=== PATIENT | male | born 1990 | race Caucasian/White ===

== ENCOUNTER 2016-07-12 06:56 | Emergency (ER) | payer BC ==
[2016-07-12] MEDS ORDERED: NORCO 5/325 MG PO ONE (07:21)
[2016-07-12] MEDS ORDERED: NORCO 5/325 MG ONE (07:25)
--- NOTE | 2016-07-12 07:29 | ERPHSYRPT ---
- History of Present Illness Time Seen by Provider: 07/12/16 07:17 Source: patient Exam Limitations: no limitations Patient Subjective Stated Complaint: pt states he has had left hip pain in the past but pain has become worse over the past few days. pt has hx of cerebral palsy. pt denies any injury. pt also c/o throat pain for the past 4 days. Triage Nursing Assessment: pt pink, warm, dry. pt ambulated into er without difficulty. pa afebrile. Physician History: This is a 25-year-old white male with history of cerebral palsy who has had a history of hip dysplasia bilateral ostomies He arrives with complaint of pain in his left hip which is worse than normal going on for the last several days he also states he has a sore throat he states he has some blisters on the inside of his lip symptoms going on for 3-4 days. He denies any fevers nausea vomiting he has no chest pain no shortness of breath Past medical history includes cerebral palsy, hip dysplasia. Past surgical history includes bilateral ostomies, Achilles tendon surgery, umbilical hernia repair. Social history includes tobacco use. Timing/Duration: day(s) (3-4 days) Severity: moderate Modifying Factors: Improves With: nothing Associated Symptoms: other ( sore throat, blisters on the mucosal surface lower lip, left hip and thigh pain), No nausea, No vomiting, No abdominal pain, No shortness of breath, No heartburn, No diaphoresis, No cough, No chills, No chest pain, No fever, No headaches, No loss of appetite, No malaise, No rash, No syncope, No seizure, No weakness Allergies/Adverse Reactions: codeine Adverse Reaction (Verified 07/12/16 07:06) morphine Adverse Reaction (Verified 07/12/16 07:06) Home Medications: Naproxen 375 mg [Naprosyn 375 mg] 3 tab PO BID 01/12/16 [History] Hx Tetanus, Diphtheria Vaccination/Date Given: Yes (up to date) Hx Influenza Vaccination/Date Given: No Hx Pneumococcal Vaccination/Date Given: No Immunizations Up to Date: Yes - Review of Systems Constitutional: No Fever, No Chills Eyes: No Symptoms Ears, Nose, & Throat: Mouth Pain, Throat Pain, Other (Blisters on the mucosal surface lower lip), No Ear Pain, No Ear Discharge, No Hearing Changes, No Tinnitus, No Nose Pain, No Nose Congestion, No Nose Discharge, No Sinus Drainage , No Epistaxis, No Mouth Swelling, No Loose Teeth, No Throat Swelling, No Hoarse , No Painful Swallowing, No Snoring, No Stridor Respiratory: No Cough, No Dyspnea Cardiac: No Chest Pain, No Edema, No Syncope Abdominal/Gastrointestinal: No Abdominal Pain, No Nausea, No Vomiting, No Diarrhea Genitourinary Symptoms: No Dysuria Musculoskeletal: Other (left hip and thigh pain) Skin: No Rash Neurological: No Dizziness, No Focal Weakness, No Sensory Changes Psychological: No Symptoms Endocrine: No Symptoms All Other Systems: Reviewed and Negative - Past Medical History Pertinent Past Medical History: Yes Neurological History: No Pertinent History ENT History: No Pertinent History Cardiac History: No Pertinent History Respiratory History: No Pertinent History Endocrine Medical History: No Pertinent History Musculoskeletal History: No Pertinent History GI Medical History: No Pertinent History History: No Pertinent History Psycho-Social History: No Pertinent History Male Reproductive Disorders: No Pertinent History Other Medical History: cp - Past Surgical History Past Surgical History: Yes Neuro Surgical History: No Pertinent History Cardiac: No Pertinent History Respiratory: No Pertinent History Gastrointestinal: Appendectomy, Hernia Repair Genitourinary: No Pertinent History Musculoskeletal: Orthopedic Surgery Male Surgical History: No Pertinent History Other Surgical History: MARY LOU OSTEOTOMIES. ACHILES TENDONS RELEASED-MARY LOU. UMBILICAL HERNIA REPAIR - Social History Smoking Status: Current some day smoker Exposure to second hand smoke: No Drug Use: none Patient Lives Alone: No - Nursing Vital Signs Nursing Vital Signs: Initial Vital Signs Temperature 97.9 F Temperature Source Oral Pulse Rate 89 Respiratory Rate 18 Blood Pressure 144/71 Pain Intensity 7 - Physical Exam General Appearance: no apparent distress, alert Eye Exam: PERRL/EOMI, eyes nml inspection Ears, Nose, Throat Exam: TMs normal, moist mucous membranes, pharyngeal erythema , other (small vesicles on the mucosal surface lower lip), No pharynx normal ( throat erythematous), No dry mucous membranes, No TM abnormal (R), No TM abnormal (L) Neck Exam: normal inspection, non-tender, supple, full range of motion Respiratory Exam: normal breath sounds, lungs clear, No respiratory distress Cardiovascular Exam: regular rate/rhythm, normal heart sounds, normal peripheral pulses Gastrointestinal/Abdomen Exam: soft, normal bowel sounds, No tenderness, No mass Back Exam: normal inspection, normal range of motion, No CVA tenderness, No vertebral tenderness, No rash, No decreased range of motion, No muscle spasm, No point tenderness Extremity Exam: other (pain with palpation left hip pain with movement left hip mild pain with palpation l thigh) Neurologic Exam: alert, oriented x 3, cooperative, normal mood/affect, nml cerebellar function, nml station & gait, sensation nml, No motor deficits Skin Exam: normal color, warm, dry, No rash Lymphatic Exam: No adenopathy SpO2 Interpretation: normal (98%) SpO2: 98 Oxygen Delivery: Room Air - Course Nursing assessment & vital signs reviewed: Yes - Radiology Exams Left Femur X-ray Interpretation: Interpreted by me, Negative, No Fracture, No Subluxation Pelvis X-ray Interpretation: Interpreted by me, Negative, No Fracture, No Subluxation Ordered Tests: Active Orders 24 hr Category Date Time Status FEMUR Stat Exams 07/12/16 07:22 Ordered PELVIS (1 OR 2 VIEWS) Stat Exams 07/12/16 07:22 Ordered CULTURE, THROAT Stat Lab 07/12/16 07:30 Received STREP SCREEN-BETA A Stat Lab 07/12/16 07:30 Completed Medication Summary Discontinued Medications Generic Name Dose Route Start Last Admin Trade Name Davidsonq PRN Reason Stop Dose Admin Acetaminophen/Hydrocodone Bitart 1 tab 07/12/16 07:21 07/12/16 07:26 [place] 5/325 Mg PO 07/12/16 07:22 1 tab STAT ONE Administration Acetaminophen/Hydrocodone Bitart Confirm 07/12/16 07:25 [place] 5/325 Mg Administered 07/12/16 07:26 Dose 1 tab .ROUTE .STK-MED ONE Lab/Rad Data: Laboratory Results 07/12/16 Range/Units 07:30 Streptococcus Screen NEGATIVE (Negative) - Progress Progress: improved Progress Note: 07/12/16 07:49 This is a 25-year-old white male with 3-4 day history of sore throat worsening of his left hip and thigh pain. Patient does have some oral ulcers on his lower lip. Strep is negative. X-ray pelvis no acute fractures or dislocations. Left femur no fractures or dislocation. Will plan to release patient. Will write for [place] for pain. Patient has Naprosyn he will take as well. Patient advised to use Benadryl and Mylanta 50/50 mix swish and spit 3 times a day as needed Plenty of fluids. - Departure Time of Disposition: 07:50 Departure Disposition: Home Clinical Impression: Viral pharyngitis, Viral vesicles of mouth, Left hip pain Condition: Fair Critical Care Time: No Additional Instructions: Return home. Continue Naprosyn twice a day with food for 5 days you have this at home. [place] 5/325 #12 one orally every 4-6 hours as needed for pain. Plenty of fluids. Mylanta/Benadryl 50-50 mix 1 teaspoon orally 3 times a day swish and spit. Follow-up with your family doctor if symptoms are worse, no better in 48 hours, or persist longer than one week. Return for acute distress or for severe symptoms Cold packs left hip 24-48 hours Prescriptions: Hydrocodone Bit/Acetaminophen [[place] 5/325Mg] 1 tab PO Q4-6HPRN PRN #12 tablet PRN Reason: Pain
[2016-07-12 07:58] VITALS: BP 125/67; PULSE 86; O2SAT 97
--- NOTE | 2016-07-12 08:55 | XRAY ---
Indication: Left hip/thigh pain for 2 weeks. No known injury. Comparison: None AP pelvis demonstrates remote appearing deformities in both proximal femurs from previous surgery or injury. No other bony, articular, or soft tissue abnormalities.
--- NOTE | 2016-07-12 08:57 | XRAY ---
Indication: Left hip/thigh pain for 2 weeks. No known injury. Comparison: None 2 views of the left femur demonstrates remote appearing deformity in the proximal femur from previous surgery or injury. No other bony, articular, or soft tissue abnormalities.
== END 2016-07-12 08:05 | disposition home or self-care (01) ==
LOC: ED 06:56
DX: J02.8 Acute pharyngitis due to other specified organisms (principal); B08.4 Enteroviral vesicular stomatitis with exanthem; M25.552 Pain in left hip; Q65.89 Other specified congenital deformities of hip; G80.9 Cerebral palsy, unspecified
CPT/HCPCS: 72170; 73552; 87070; 87430; 99283

== ENCOUNTER 2019-02-20 16:47 | Emergency (ER) | payer BC ==
[2019-02-20] MEDS ORDERED: NEURONTIN 300 MG PO ONE (17:12)
[2019-02-20 17:58] VITALS: O2SAT 98
[2019-02-20] MEDS ORDERED: ULTRAM 50 MG PO ONE (18:12)
[2019-02-20] MEDS ORDERED: ULTRAM 50 MG ONE (18:18)
--- NOTE | 2019-02-20 19:15 | ERPHSYRPT ---
- History of Present Illness Source: patient Exam Limitations: no limitations Patient Subjective Stated Complaint: Pt states "I haver cerebral palsey and I have been feeling good and went to play golf today. On one of my drives, I got this intense buring and pain on the outside of my left foot." Triage Nursing Assessment: Pt presented through the front, alert and oriented X 3, skin pwd Pt not able to ambulate, pt able to speak in clear full sentencse Pt left foot no bruising, no deformity, no swelling, extremely tender to lateral left foot Physician History: Pt is a 28 y/o male wth a h/o CP that felt better today,, and decided to go play golf. Pt states, he did not remember any injury, but then he developed severe pain radiating from his L foot up the leg. The pt states, the pain is so severe, he can't have any contact with the foot. Pt never had neuropathic pain, and was never on any meds for muscle relaxation or neuropathy. Method of Injury: unknown Occurred: this morning Quality: constant Severity of Pain-Max: severe Severity of Pain-Current: mild Lower Extremities Pain: foot: left (severe pain from foot up the leg.) Modifying Factors: Improves With: nothing Associated Symptoms: none Allergies/Adverse Reactions: meloxicam Adverse Reaction (Severe, Verified 02/20/19 17:01) tachycardia codeine Adverse Reaction (Verified 07/12/16 07:06) morphine Adverse Reaction (Verified 07/12/16 07:06) Home Medications: No Reportable Medications [No Reported Medications] 02/20/19 [History] Hx Tetanus, Diphtheria Vaccination/Date Given: No Hx Influenza Vaccination/Date Given: No Hx Pneumococcal Vaccination/Date Given: No Immunizations Up to Date: Yes - Review of Systems Constitutional: No Fever, No Chills Eyes: No Symptoms Ears, Nose, & Throat: No Symptoms Respiratory: No Cough, No Dyspnea Cardiac: No Chest Pain, No Edema, No Syncope Abdominal/Gastrointestinal: No Abdominal Pain, No Nausea, No Vomiting, No Diarrhea Genitourinary Symptoms: No Dysuria Musculoskeletal: Other (Pain in the L foot radiating up his leg) Neurological: No Dizziness, No Focal Weakness, No Sensory Changes - Past Medical History Pertinent Past Medical History: Yes Neurological History: No Pertinent History ENT History: No Pertinent History Cardiac History: No Pertinent History Respiratory History: No Pertinent History Endocrine Medical History: No Pertinent History Musculoskeletal History: No Pertinent History GI Medical History: No Pertinent History History: No Pertinent History Psycho-Social History: No Pertinent History Male Reproductive Disorders: No Pertinent History Other Medical History: cp - Past Surgical History Past Surgical History: Yes Neuro Surgical History: No Pertinent History Cardiac: No Pertinent History Respiratory: No Pertinent History Gastrointestinal: Appendectomy, Hernia Repair Genitourinary: No Pertinent History Musculoskeletal: Orthopedic Surgery Male Surgical History: No Pertinent History Other Surgical History: MARY LOU OSTEOTOMIES. ACHILES TENDONS RELEASED-[facility] L[facility]. UMBILICAL HERNIA REPAIR - Social History Smoking Status: Former smoker Exposure to second hand smoke: Yes Drug Use: none Patient Lives Alone: No - Nursing Vital Signs Nursing Vital Signs: Initial Vital Signs Temperature 98.0 F 02/20/19 16:53 Pulse Rate 94 H 02/20/19 16:53 Respiratory Rate 20 02/20/19 16:53 Blood Pressure 135/80 02/20/19 16:53 O2 Sat by Pulse Oximetry 99 02/20/19 16:53 Pain Scale Pain Intensity 5 - Physical Exam General Appearance: alert Eyes, Ears, Nose, Throat Exam: moist mucous membranes Neck Exam: non-tender, supple Cardiovascular/Respiratory Exam: chest non-tender, normal breath sounds, regular rate/rhythm, no respiratory distress Gastrointestinal/Abdominal Exam: non-tender, guarding Back Exam: normal inspection, No vertebral tenderness Foot Exam: left foot: pain (Severe pain in lateral L foot radiating up his leg) , soft tissue tenderness Neuro/Tendon Exam: normal sensation, normal motor functions SpO2: 98 - Radiology Exams Left Foot X-ray Interpretation: Interpreted by me (No acute bony changes or fractures) Ordered Tests: Active Orders 24 hr Category Date Time Status FOOT (MINIMUM 3 VIEWS) Stat Exams 02/20/19 17:15 Taken Medication Summary Discontinued Medications Generic Name Dose Route Start Last Admin Trade Name Freq PRN Reason Stop Dose Admin Gabapentin 300 mg 02/20/19 17:12 02/20/19 17:38 Neurontin 300 Mg PO 02/20/19 17:13 300 mg ONCE ONE Administration Tramadol HCl 100 mg 02/20/19 18:12 02/20/19 18:19 Ultram 50 Mg PO 02/20/19 18:13 100 mg STAT ONE Administration Tramadol HCl Confirm 02/20/19 18:18 Ultram 50 Mg Administered 02/20/19 18:19 Dose 100 mg .ROUTE .STK-MED ONE - Progress Progress: improved Progress Note: 02/20/19 19:16 Pt got Neurontin 300mg for the pain, but he did not feel any improvement. Pt had a good experience with Tramadol in the past, and he got Tramadol 100mg PO once, that improved his pain. Pt is safe for d/c and he should f/u with his PCP for pain control, and advance imaging (MRI) is needed. Will see patient in: office Counseled pt/family regarding: need for follow-up - Departure Departure Disposition: Home Clinical Impression: Left foot pain Condition: Stable Critical Care Time: No Referrals: CHAZ PALAFOX [Primary Care Provider] - Additional Instructions: F/U with PCP for MRI and pain control.
[2019-02-20 19:35] VITALS: BP 123/69; PULSE 81
--- NOTE | 2019-02-21 08:40 | XRAY ---
Indication: Pain after playing golf. Comparison: January 12, 2016. 3 nonweightbearing views of the left foot demonstrate stable tiny navicular bone spurring with new great toe soft tissue swelling. No other bony, articular, or soft tissue abnormalities.
== END 2019-02-20 19:31 | disposition home or self-care (01) ==
LOC: ED 16:47
DX: M79.672 Pain in left foot (principal); G80.9 Cerebral palsy, unspecified
CPT/HCPCS: 73630; 99284; A9270-GY

== ENCOUNTER 2021-01-28 16:46 | Day surgery (SDC) | payer BC ==
--- NOTE | 2021-01-29 11:54 | XRAY ---
7 seconds fluoroscopy time in surgery for injection of the left SI joint.
--- NOTE | 2021-02-01 01:08 | XRAY ---
Indication: Left SI joint injection. Intraoperative fluoroscopy was provided for 7 seconds. A single lateral digital spot image submitted for interpretation demonstrates the posterior needle tip projected over the sacroiliac joint. Correlate with intraoperative findings/report.
== END 2021-01-28 18:50 | disposition home or self-care (01) ==
LOC: SDC-PAIN 16:46
PROVIDERS: ATTEND Psychiatry & Neurology Pain Medicine
DX: M46.1 Sacroiliitis, not elsewhere classified (principal); G80.9 Cerebral palsy, unspecified; Z79.899 Other long term (current) drug therapy
CPT/HCPCS: 27096; 72020; 77002; G0260

== ENCOUNTER 2021-04-13 11:21 | Emergency (ER) | payer BC ==
--- NOTE | 2021-04-13 11:55 | ERPHSYRPT ---
- History of Present Illness Time Seen by Provider: 04/13/21 12:24 Source: patient Exam Limitations: no limitations Patient Subjective Stated Complaint: R foot pain x 1 week Triage Nursing Assessment: pt to ED c/o R foot pain x 1 week. denies injury or trauma at that time. states pain has increased over last week, 01/03 today. oxycodone taken at 0630 this am with no relief. pt ambulates with limp in gate r/t cerebral palsy, reports he is not noticed a change in ambulation since pain began. palpable strong pedal pulses. Physician History: Patient is a 30-year-old male presents to our emergency department with complai nts of right foot pain. No history of trauma. Patient has a history of cerebral palsy. Patient walks with a pronated foot. Patient has been experiencing progressive right foot pain over the past week. Pain described as an ache that is localized to the dorsum of the foot. No radiation. Pain worse with weightbearing. Pain improved with rest. No other complaints. No knee pain. No active hip pain. Chronic back pain. Symptoms are mild to moderate in intensity. Patient voices no other complaints concerns at this time. Method of Injury: unknown (No history of trauma.) Quality: constant Severity of Pain-Max: moderate Severity of Pain-Current: mild Lower Extremities Pain: foot: right Modifying Factors: Improves With: movement (Weightbearing) Associated Symptoms: none Allergies/Adverse Reactions: meloxicam Adverse Reaction (Severe, Verified 04/13/21 11:34) tachycardia codeine Adverse Reaction (Verified 04/13/21 11:34) morphine Adverse Reaction (Verified 04/13/21 11:34) Home Medications: Oxycodone HCl 10 mg PO DAILY 04/13/21 [History] Hx Tetanus, Diphtheria Vaccination/Date Given: No Hx Influenza Vaccination/Date Given: No Hx Pneumococcal Vaccination/Date Given: No Immunizations Up to Date: No Travel Risk - International Travel Have you traveled outside of the country in past 3 weeks: No - Coronavirus Screening Are you exhibiting any of the following symptoms?: No Close contact with a COVID-19 positive Pt in past 14-21 Days: No - Vaccine Status Have you recieved a Covid-19 vaccination: No - Review of Systems Constitutional: No Symptoms, No Fever, No Chills Eyes: No Symptoms Ears, Nose, & Throat: No Symptoms Respiratory: No Symptoms, No Cough, No Dyspnea Cardiac: No Symptoms, No Chest Pain, No Edema, No Syncope Abdominal/Gastrointestinal: No Symptoms, No Abdominal Pain, No Nausea, No Vomiting, No Diarrhea Genitourinary Symptoms: No Symptoms, No Dysuria Musculoskeletal: No Symptoms, No Back Pain, No Neck Pain Skin: No Symptoms, No Rash Neurological: No Symptoms, No Dizziness, No Focal Weakness, No Sensory Changes Psychological: No Symptoms Endocrine: No Symptoms Hematologic/Lymphatic: No Symptoms Immunological/Allergic: No Symptoms All Other Systems: Reviewed and Negative - Past Medical History Pertinent Past Medical History: Yes Neurological History: Seizures ENT History: No Pertinent History Cardiac History: No Pertinent History Respiratory History: No Pertinent History Endocrine Medical History: No Pertinent History Musculoskeletal History: Arthritis, Other GI Medical History: No Pertinent History History: No Pertinent History Psycho-Social History: No Pertinent History Male Reproductive Disorders: No Pertinent History Other Medical History: L HIP DYSPLASIA W/ PN; 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 cerebral palsy - Past Surgical History Past Surgical History: Yes Neuro Surgical History: No Pertinent History Cardiac: No Pertinent History Respiratory: No Pertinent History Gastrointestinal: Appendectomy, Hernia Repair Genitourinary: No Pertinent History Musculoskeletal: Orthopedic Surgery Male Surgical History: No Pertinent History Other Surgical History: MARY LOU OSTEOTOMIES. ACHILES TENDONS RELEASED-MARY LOU. UMBILICAL HERNIA REPAIR - Social History Smoking Status: Former smoker Exposure to second hand smoke: Yes Drug Use: none Patient Lives Alone: No - Nursing Vital Signs Nursing Vital Signs: Initial Vital Signs O2 Sat by Pulse Oximetry 98 04/13/21 12:23 Pain Scale Pain Intensity 7 - Physical Exam General Appearance: no apparent distress, alert Eyes, Ears, Nose, Throat Exam: moist mucous membranes Neck Exam: normal inspection, non-tender, supple Cardiovascular/Respiratory Exam: chest non-tender, normal breath sounds, regular rate/rhythm, no respiratory distress Gastrointestinal/Abdominal Exam: non-tender, soft, guarding Back Exam: normal inspection, No vertebral tenderness Hips Exam: bilateral: non-tender, normal inspection, normal range of motion, no evidence of injury Legs Exam: bilateral leg: non-tender, normal inspection, normal range of motion, no evidence of injury Knees Exam: bilateral knee: non-tender, normal inspection, normal range of motion, no evidence of injury Ankle Exam: bilateral ankle: non-tender, normal inspection, normal range of motion, no evidence of injury Foot Exam: right foot: pain, soft tissue tenderness, other (Right lower extremities neurovascular intact distally. Compartments are soft. No signs of trauma. The foot appears chronically pronated. Well-healed foot incision from previous surgery. No signs of trauma), left foot: non-tender, normal inspection, normal range of motion, no evidence of injury Neuro/Tendon Exam: normal sensation, normal motor functions, normal tendon functions Mental Status Exam: alert, oriented x 3, cooperative Skin Exam: normal color, warm, dry SpO2 Interpretation: normal SpO2: 98 O2 Delivery: Room Air - Course Nursing assessment & vital signs reviewed: Yes - Radiology Exams Foot X-ray Interpretation: Teleradiologist Report (Mild first MTP bunion deformity no other bony articular or soft tissue abnormalities.) Ordered Tests: Active Orders 24 hr Category Date Time Status FOOT (MINIMUM 3 VIEWS) Stat Exams 04/13/21 11:47 Completed - Progress Progress: improved Progress Note: Patient reassessed. He is well. Patient received Tylenol for pain. Patient's pain is atraumatic. He has a history of cerebral palsy with a pronated right foot deformity. X-ray negative for fracture dislocation. Patient referred to orthopedics/podiatry for evaluation possible for orthotic. Plan of care discussed with patient. He agrees to follow-up with podiatry within 48 hours for evaluation. He voices no other complaints concerns at this time. Portions of this note were created with voice recognition technology. There may be grammatical, spelling, punctuation or sound alike errors 04/13/21 12:26 Counseled pt/family regarding: diagnosis, need for follow-up, rad results - Departure Departure Disposition: Home Clinical Impression: Chronic foot pain Condition: Stable Critical Care Time: No Referrals: CHAZ PALAFOX NP [Primary Care Provider] - Additional Instructions: Discharge/Care Plan ROSELINE WATSON was seen on 04/13/21 in the Emergency Room. The patient was counseled regarding Diagnosis,Lab results, Imaging studies, need for follow up and when to return to the Emergency Room. Prescriptions given: Discharge Note I have spoken with the patient and/or caregivers. I have explained the patient's condition, diagnosis and treatment plan based on the information available to me at this time. I have answered the patient's and/or caregiver's questions and addressed any concerns. The patient and/or caregivers have as good understanding of the patient's diagnosis, condition and treatment plan as can be expected at this point. The vital signs have been stable. The patient's condition is stable and appropriate for discharge from the emergency department. The patient will pursue further outpatient evaluation with the primary care physician or other designated or consulting physician as outlined in the discharge instructions. The patient and/or caregivers are agreeable to this plan of care and follow-up instructions have been explained in detail. The patient and/or caregivers have received these instruction. The patient/and or caregivers are aware that any significant change in condition or worsening of symptoms should prompt an immediate return to this or the closest emergency department or call 911. Outpatient Orders: Ortho Referral Time Frame: 1 Day, [facility] Location: [facility]
[2021-04-13 11:57] VITALS: O2SAT 98
--- NOTE | 2021-04-13 12:21 | XRAY ---
Indication: Pain. Comparison: None 3 nonweightbearing views right foot demonstrates mild 1st MTP bunion deformity. No other bony, articular, or soft tissue abnormalities.
[2021-04-13] MEDS ORDERED: TYLENOL 325 MG PO ONE (12:24)
[2021-04-13] MEDS ORDERED: TYLENOL 325 MG ONE (13:09)
== END 2021-04-13 13:21 | disposition home or self-care (01) ==
LOC: ED 11:21
DX: M79.671 Pain in right foot (principal); G89.29 Other chronic pain; F45.42 Pain disorder with related psychological factors
CPT/HCPCS: 73630; 99283; A9270-GY

== ENCOUNTER 2021-05-27 10:18 | Day surgery (SDC) | payer BC ==
[2021-05-27] MEDS ORDERED: LIDOCAINE HCL 2% 100 MG/5 ML IJ ONE (10:19)
[2021-05-27] MEDS ORDERED: DIPRIVAN 200 MG/20 ML IV ONE (12:51)
[2021-05-27] MEDS ORDERED: Ketamine HCl 50 MG/ML ONE (12:51)
--- NOTE | 2021-05-27 14:18 | XRAY ---
Indication: Bilateral L4-S1 MBB. Intraoperative fluoroscopy provided for 11 seconds. Single digital spot image submitted for interpretation demonstrates posterior needle tips projecting over the expected left and right L4-S1 nerve roots. Correlate with intraoperative findings/report.
--- NOTE | 2021-05-27 14:30 | XRAY ---
11 seconds fluoroscopy time in surgery for bilateral L4-S1 MBB.
[2021-05-27] MEDS ORDERED: Lactated Ringers 1,000 ML IV ONE (14:31)
== END 2021-05-27 13:20 | disposition home or self-care (01) ==
LOC: SDC-PAIN 10:18
PROVIDERS: ATTEND Psychiatry & Neurology Pain Medicine
DX: M47.816 Spondylosis without myelopathy or radiculopathy, lumbar region (principal); K21.9 Gastro-esophageal reflux disease without esophagitis; M41.9 Scoliosis, unspecified; Z79.899 Other long term (current) drug therapy
CPT/HCPCS: 64493; 64494; 72020; 77002; J2704

== ENCOUNTER 2021-09-23 13:41 | Day surgery (SDC) | payer BC ==
[2021-09-23] MEDS ORDERED: BUPIVACAINE 0.5% VIAL IJ ONE (13:42)
[2021-09-23] MEDS ORDERED: DIPRIVAN 200 MG/20 ML IV ONE (16:16)
[2021-09-23] MEDS ORDERED: Xylocaine-Mpf 2% 5 Ml Vial ONE (16:20)
[2021-09-23] MEDS ORDERED: Lactated Ringers 1,000 ML IV ONE (16:24)
[2021-09-23] MEDS ORDERED: TORAdol 30 mg Injection ONE (16:36)
--- NOTE | 2021-09-23 16:48 | XRAY ---
Indication: Bilateral L4-S1 MBB. Intraoperative fluoroscopy provided for 21 seconds. Single digital spot image submitted for interpretation demonstrates posterior needle tips projecting over the expected left and right L4-S1 nerve roots. Correlate with intraoperative findings/report.
--- NOTE | 2021-09-23 17:02 | XRAY ---
21 seconds fluoroscopy time in surgery for bilateral L4-S1 MBB.
== END 2021-09-23 16:45 | disposition home or self-care (01) ==
LOC: SDC-PAIN 13:41
PROVIDERS: ATTEND Psychiatry & Neurology Pain Medicine
DX: M47.816 Spondylosis without myelopathy or radiculopathy, lumbar region (principal); Z79.899 Other long term (current) drug therapy
CPT/HCPCS: 64493; 64494; 72020; 77002; J1885; J2704

== ENCOUNTER 2021-12-14 16:58 | Emergency (ER) | payer BC ==
--- NOTE | 2021-12-14 17:05 | ERPHSYRPT ---
- History of Present Illness Time Seen by Provider: 12/14/21 17:05 Source: patient Exam Limitations: no limitations Physician History: This is a 31-year-old white male patient who presents with left calf pain that he injured while playing golf today he felt a pop in the left calf when swinging his golf club. Because of his cerebral palsy he has had multiple orthopedic surgeries in his lower extremities. He has left hip dysplasia as well. Patient sees Dr. Carmen who is a pain specialist and saw him as recent as 12/08/2021. Patient drove himself into the hospital. He is allowed to take 1 oxycodone each morning. He has done so. However he did have an injury to his left calf today. He has no shortness of breath. He has no cough. He has no chest pain Occurred: just prior to arrival Quality: aching (Left calf) Severity of Pain-Max: moderate Severity of Pain-Current: mild (To moderate) Lower Extremities Pain: leg: left Modifying Factors: Improves With: movement (While standing in walking) Associated Symptoms: popping sensation (Occurred acutely when he swung his golf club in the left calf. Patient can bear weight but it hurts to do so in the left calf region) Allergies/Adverse Reactions: meloxicam Adverse Reaction (Severe, Verified 12/14/21 17:09) tachycardia codeine Adverse Reaction (Verified 12/14/21 17:09) morphine Adverse Reaction (Verified 12/14/21 17:09) Home Medications: Oxycodone HCl 10 mg PO DAILY 04/13/21 [History] Hx Tetanus, Diphtheria Vaccination/Date Given: No Hx Influenza Vaccination/Date Given: No Hx Pneumococcal Vaccination/Date Given: No Travel Risk - International Travel Have you traveled outside of the country in past 3 weeks: No - Coronavirus Screening Are you exhibiting any of the following symptoms?: No Close contact with a COVID-19 positive Pt in past 14-21 Days: No - Vaccine Status Have you recieved a Covid-19 vaccination: No - Review of Systems Constitutional: No Symptoms Eyes: No Symptoms Ears, Nose, & Throat: No Symptoms Respiratory: No Symptoms Cardiac: No Symptoms Abdominal/Gastrointestinal: No Symptoms Genitourinary Symptoms: No Symptoms Musculoskeletal: Injury (Left calf) Skin: No Symptoms Neurological: No Symptoms Psychological: No Symptoms Endocrine: No Symptoms Hematologic/Lymphatic: No Symptoms Immunological/Allergic: No Symptoms All Other Systems: Reviewed and Negative - Past Medical History Pertinent Past Medical History: Yes Neurological History: Seizures ENT History: No Pertinent History Cardiac History: No Pertinent History Respiratory History: No Pertinent History Endocrine Medical History: No Pertinent History Musculoskeletal History: Arthritis, Other GI Medical History: No Pertinent History History: No Pertinent History Psycho-Social History: No Pertinent History Male Reproductive Disorders: No Pertinent History Other Medical History: L HIP DYSPLASIA W/ PN; 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 cerebral palsy - Past Surgical History Past Surgical History: Yes Neuro Surgical History: No Pertinent History Cardiac: No Pertinent History Respiratory: No Pertinent History Gastrointestinal: Appendectomy, Hernia Repair Genitourinary: No Pertinent History Musculoskeletal: Orthopedic Surgery Male Surgical History: No Pertinent History Other Surgical History: MARY LOU OSTEOTOMIES. ACHILES TENDONS RELEASED-MARY LOU. UMBILICAL HERNIA REPAIR - Social History Smoking Status: Former smoker Exposure to second hand smoke: Yes Drug Use: none Patient Lives Alone: No - Nursing Vital Signs Nursing Vital Signs: Initial Vital Signs Temperature 97.2 F 12/14/21 17:02 Pulse Rate 100 H 12/14/21 17:02 Respiratory Rate 18 12/14/21 17:02 Blood Pressure 158/97 12/14/21 17:02 O2 Sat by Pulse Oximetry 97 12/14/21 17:02 Pain Scale Pain Intensity 4 - Physical Exam General Appearance: no apparent distress, alert, anxiety Eyes, Ears, Nose, Throat Exam: normal ENT inspection, moist mucous membranes Neck Exam: normal inspection, non-tender, supple, full range of motion Cardiovascular/Respiratory Exam: chest non-tender, no respiratory distress Gastrointestinal/Abdominal Exam: non-tender Back Exam: normal inspection, normal range of motion, No CVA tenderness, No vertebral tenderness Hips Exam: bilateral: non-tender, normal inspection, normal range of motion, no evidence of injury Legs Exam: right leg: non-tender, left leg: soft tissue tenderness (Left calf), bilateral leg: normal inspection, normal range of motion, no evidence of injury Knees Exam: bilateral knee: non-tender, normal inspection, normal range of motion, no evidence of injury Ankle Exam: bilateral ankle: non-tender, normal inspection, normal range of motion, no evidence of injury Foot Exam: bilateral foot: non-tender, normal inspection, normal range of m otion, no evidence of injury Neuro/Tendon Exam: normal sensation, normal motor functions, normal tendon functions, responds to pain, no evidence tendon injury Mental Status Exam: alert, oriented x 3, cooperative Skin Exam: normal color, warm, dry SpO2 Interpretation: normal O2 Delivery: Room Air - Course Nursing assessment & vital signs reviewed: Yes Ordered Tests: Active Orders 24 hr Category Date Time Status LOWER EXTREMITY WO CONTRAST [CT] Stat Exams 12/14/21 17:17 Ordered Medication Summary Discontinued Medications Generic Name Dose Route Start Last Admin Trade Name Kailee PRN Reason Stop Dose Admin Orphenadrine Citrate 100 mg 12/14/21 17:25 12/14/21 17:47 Orphenadrine Citrate 100 Mg Er Tab PO 12/14/21 17:26 100 mg STAT ONE Administration Oxycodone/Acetaminophen 2 tab 12/14/21 17:54 Oxycodone Hcl/Apap 5 Mg/325 Mg Tablet PO 12/14/21 17:55 SENT HOME W/ PATIENT STA - Progress Progress: pain not gone completely Progress Note: 12/14/21 18:26 I offered the patient crutches. However, he feels that this will be difficult for him to use. He is allowed to weight-bear. Counseled pt/family regarding: diagnosis, need for follow-up, rad results - Departure Departure Disposition: Home Clinical Impression: Pain of left calf Condition: Stable Critical Care Time: No Referrals: CHAZ PALAFOX NP [Primary Care Provider] - Follow up/PCP as directed Additional Instructions: Take your medication as prescribed. May alternate ice and heat to the left calf. May also have massaging to the left calf area. Contact your primary care provider tomorrow for further evaluation and management. Contact your crayon painter for further evaluation and management of your calf pain.
[2021-12-14] MEDS ORDERED: Norflex 100 MG Tablet PO ONE (17:25)
[2021-12-14] MEDS ORDERED: PERCOCET TABLET 5/325MG PO STA (17:54)
[2021-12-14] MEDS ORDERED: PERCOCET TABLET 5/325MG ONE (18:28)
[2021-12-14 18:37] VITALS: BP 133/70; PULSE 76; O2SAT 98
--- NOTE | 2021-12-15 08:36 | XRAY ---
Indication: Midcalf pain. Multiple contiguous axial images obtained through the left lower leg to include the knee and ankle. Two-dimensional sagittal and coronal reformatted images obtained. Comparison: None No acute fracture, dislocation, or suspicious bony lesions. Mid lower leg demonstrates 5 mm anterior subcutaneous calcified granuloma. No suspicious solid/cystic soft tissue mass or abnormal fluid collection. Visualized Achilles tendon intact. Major arteries and veins are normal in course and caliber. Impression: Negative CT left lower leg without contrast exam.
== END 2021-12-14 18:41 | disposition home or self-care (01) ==
LOC: ED 16:58
DX: M79.662 Pain in left lower leg (principal); X50.0XXA Overexertion from strenuous movement or load, initial encounter; Y93.53 Activity, golf; Y92.39 Other specified sports and athletic area as the place of occurrence of the external cause; G80.9 Cerebral palsy, unspecified; Z79.891 Long term (current) use of opiate analgesic; Z28.310 Unvaccinated for COVID-19
CPT/HCPCS: 73700; 99284; A9270-GY

== ENCOUNTER 2021-12-30 07:03 | Day surgery (SDC) | payer BC ==
[2021-12-30] MEDS ORDERED: Marcaine Mpf 0.5% Vial 30 Ml IJ ONE (07:04)
[2021-12-30] MEDS ORDERED: XYLOCAINE-MPF 1% 5ML SDV IJ ONE (07:04)
[2021-12-30] MEDS ORDERED: Depo-Medrol 40 MG/ML IM ONE (07:04)
[2021-12-30] MEDS ORDERED: Lactated Ringers 1,000 ML IV ONE (08:28)
--- NOTE | 2021-12-30 16:57 | XRAY ---
Indication: Left L4-S1 RFA. Intraoperative fluoroscopy provided for 1 minute 17 seconds. 3 digital spot image submitted for interpretation demonstrates posterior needle tips projecting over the expected left L4-S1 nerve roots. Correlate with intraoperative findings/report.
--- NOTE | 2021-12-30 16:57 | XRAY ---
1 minute and 17 seconds fluoroscopy time in surgery for left L4-S1 RFA.
== END 2021-12-30 08:31 | disposition home or self-care (01) ==
LOC: SDC-PAIN 07:03
PROVIDERS: ATTEND Psychiatry & Neurology Pain Medicine
DX: M47.816 Spondylosis without myelopathy or radiculopathy, lumbar region (principal); Z79.899 Other long term (current) drug therapy
CPT/HCPCS: 64635; 64636; 72100; 77002; J1030

== ENCOUNTER 2022-01-06 07:01 | Day surgery (SDC) | payer BC ==
[~2022-01-06 07:01] MED LIST: DIPRIVAN 200 MG/20 ML IV ONE
[2022-01-06] MEDS ORDERED: Depo-Medrol 40 MG/ML IM ONE (07:02)
[2022-01-06] MEDS ORDERED: XYLOCAINE-MPF 1% 5ML SDV IJ ONE (07:02)
[2022-01-06] MEDS ORDERED: Marcaine Mpf 0.5% Vial 30 Ml IJ ONE (07:02)
[2022-01-06] MEDS ORDERED: Lactated Ringers 1,000 ML IV ONE (08:29)
--- NOTE | 2022-01-06 09:47 | XRAY ---
Indication: Right L4-S1 RFA. Intraoperative fluoroscopy provided for 32 seconds. 3 digital spot images submitted for interpretation demonstrates posterior needle tips projecting over the expected right L4-S1 nerve roots. Correlate with intraoperative findings/report.
--- NOTE | 2022-01-06 11:04 | XRAY ---
32 seconds of fluoroscopy was used in surgery for a right L4-S1 RFA.
== END 2022-01-06 08:33 | disposition home or self-care (01) ==
LOC: SDC-PAIN 07:01
PROVIDERS: ATTEND Psychiatry & Neurology Pain Medicine
DX: M47.816 Spondylosis without myelopathy or radiculopathy, lumbar region (principal); Z79.899 Other long term (current) drug therapy
CPT/HCPCS: 64635; 64636; 72100; 77002; J1030; J2704

== ENCOUNTER 2022-10-06 13:55 | Day surgery (SDC) | payer BC ==
[2022-10-06] MEDS ORDERED: Depo-Medrol 40 MG/ML IM ONE (13:56)
[2022-10-06] MEDS ORDERED: BUPIVACAINE 0.5% VIAL IJ ONE (13:56)
[2022-10-06] MEDS ORDERED: LIDOCAINE HCL 1% 50 MG/5 ML VL PF IJ ONE (13:56)
--- NOTE | 2022-10-06 19:39 | XRAY ---
Indication: Left SI joint and left hip injection. Intraoperative fluoroscopy provided for 49 seconds. 4 digital spot images obtained prone submitted for interpretation demonstrates posterior needle tip projecting over the expected left SI joint. Second needle tip lateral to left femur neck with small amount of contrast injected for needle tip placement. Correlate with intraoperative findings/report.
--- NOTE | 2022-10-07 08:42 | XRAY ---
49 seconds of fluoroscopy was used in surgery for a left sacroiliac joint and left intra-articular hip injection.
== END 2022-10-06 16:50 | disposition home or self-care (01) ==
LOC: SDC-PAIN 13:55
PROVIDERS: ATTEND Psychiatry & Neurology Pain Medicine
DX: M46.1 Sacroiliitis, not elsewhere classified (principal); M16.12 Unilateral primary osteoarthritis, left hip; Z79.899 Other long term (current) drug therapy
CPT/HCPCS: 20610; 27096; 73501; 77002; J1030; J2001; Q9966; G0260

== ENCOUNTER 2023-03-15 16:39 | Emergency (ER) | payer BC ==
[2023-03-15 16:47] VITALS: TEMP 97.2
[2023-03-15 17:33] VITALS: BP 137/97; PULSE 77
[2023-03-15 17:35] VITALS: O2SAT 100
--- NOTE | 2023-03-15 17:35 | ERPHSYRPT ---
- History of Present Illness Time Seen by Provider: 03/15/23 17:29 Source: patient Exam Limitations: no limitations Patient Subjective Stated Complaint: Pt was at work at the [employer] and thought he was seeing a gnat fly by and it was just his eyes so they took his blood pre ssure and 200/110 Triage Nursing Assessment: Pt brought to the ER by a coworker, hypertensive, rates leg pain as 6/10, pt's blood pressure has lowered since arriving to the ER , pulses normal, skin n/w/d, has had problems in the past with BP but has never been on any meds, no hx of heart problems, pt does have cerebal palsy and hip displasia Physician History: Patient a 32-year-old male presents to our ED as a referral from the [employer] nurse for evaluation of blood pressure. Patient was at work. Patient thought he saw a fly possible floater. Patient had the nurse check his blood pressure was elevated patient was instructed to come to our ED. Patient otherwise asymptomatic. Patient admits to history of chronic left leg pain due to multi ple surgeries in the past from cerebral palsy corrective surgeries. Patient had extensive procedures like osteotomies and muscle releases according to patient. Patient is not allowed to obtain his pain medications while at work. The patient was in pain at that time. Upon arrival to our ED patient was comfortable. Patient sitting up in bed. Vital stable. Patient otherwise asymptomatic. Patient had no other complaints. Portions of this note were created with voice recognition technology. There may be grammatical, spelling, punctuation or sound alike errors Timing/Duration: today Severity: moderate Modifying Factors: Improves With: nothing Associated Symptoms: denies symptoms Allergies/Adverse Reactions: meloxicam Adverse Reaction (Severe, Verified 03/15/23 16:57) tachycardia codeine Adverse Reaction (Verified 03/15/23 16:57) morphine Adverse Reaction (Verified 03/15/23 16:57) Home Medications: Hydrocodone/Acetaminophen [Hydrocodone-Acetamin 10-325 mg] 1 tablet PO TID 03/15/23 [History] Hx Tetanus, Diphtheria Vaccination/Date Given: No Hx Influenza Vaccination/Date Given: No Hx Pneumococcal Vaccination/Date Given: No Travel Risk - International Travel Have you traveled outside of the country in past 3 weeks: No - Coronavirus Screening Are you exhibiting any of the following symptoms?: No Close contact with a COVID-19 positive Pt in past 14-21 Days: No - Vaccine Status Have you recieved a Covid-19 vaccination: No - Review of Systems Constitutional: No Symptoms, No Fever, No Chills Eyes: No Symptoms Ears, Nose, & Throat: No Symptoms Respiratory: No Symptoms, No Cough, No Dyspnea Cardiac: No Symptoms, No Chest Pain, No Edema, No Syncope Abdominal/Gastrointestinal: No Symptoms, No Abdominal Pain, No Nausea, No Vomiting, No Diarrhea Genitourinary Symptoms: No Symptoms, No Dysuria Musculoskeletal: No Symptoms, No Back Pain, No Neck Pain Skin: No Symptoms, No Rash Neurological: No Symptoms, No Dizziness, No Focal Weakness, No Sensory Changes Psychological: No Symptoms Endocrine: No Symptoms Hematologic/Lymphatic: No Symptoms Immunological/Allergic: No Symptoms All Other Systems: Reviewed and Negative - Past Medical History Pertinent Past Medical History: Yes Neurological History: Seizures ENT History: No Pertinent History Cardiac History: No Pertinent History Respiratory History: No Pertinent History Endocrine Medical History: No Pertinent History Musculoskeletal History: Arthritis, Other GI Medical History: No Pertinent History History: No Pertinent History Psycho-Social History: No Pertinent History Male Reproductive Disorders: No Pertinent History Other Medical History: L HIP DYSPLASIA W/ PN; 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 cerebral palsy - Past Surgical History Past Surgical History: Yes Neuro Surgical History: No Pertinent History Cardiac: No Pertinent History Respiratory: No Pertinent History Gastrointestinal: Appendectomy, Hernia Repair Genitourinary: No Pertinent History Musculoskeletal: Orthopedic Surgery Male Surgical History: No Pertinent History Other Surgical History: MARY LOU OSTEOTOMIES. ACHILES TENDONS RELEASED-MARY LOU. UMBILICAL HERNIA REPAIR - Social History Smoking Status: Former smoker Exposure to second hand smoke: No Drug Use: none Patient Lives Alone: No - Nursing Vital Signs Nursing Vital Signs: Initial Vital Signs Temperature 97.2 F 03/15/23 16:45 Pulse Rate 95 H 03/15/23 16:45 Blood Pressure 150/98 03/15/23 16:45 O2 Sat by Pulse Oximetry 100 03/15/23 16:45 Pain Scale Pain Intensity 6 - Physical Exam General Appearance: no apparent distress, alert Eye Exam: PERRL/EOMI, eyes nml inspection Ears, Nose, Throat Exam: normal ENT inspection, TMs normal, pharynx normal, moist mucous membranes Neck Exam: normal inspection, non-tender, supple, full range of motion Respiratory Exam: normal breath sounds, lungs clear, airway intact, No respiratory distress Cardiovascular Exam: regular rate/rhythm, normal heart sounds, normal peripheral pulses Gastrointestinal/Abdomen Exam: soft, normal bowel sounds, No tenderness, No mass Back Exam: normal inspection, normal range of motion, No CVA tenderness, No vertebral tenderness Extremity Exam: normal inspection, normal range of motion, pelvis stable Neurologic Exam: alert, oriented x 3, cooperative, normal mood/affect, sensation nml, No motor deficits Skin Exam: normal color, warm, dry, No rash Lymphatic Exam: No adenopathy SpO2 Interpretation: normal SpO2: 100 O2 Delivery: Room Air - Course Nursing assessment & vital signs reviewed: Yes - Progress Progress: improved Progress Note: Patient is a 32-year-old male presents to our ED as a referral for blood pressure screening. Patient's blood pressure was elevated at work likely due to pain as he has not taken his pain medication. Patient currently asymptomatic. Blood pressure within normal limits. Patient has since taken his blood pressure medication. No indication for work-up at this time. Will discharge h ome. Patient agrees to follow-up with his primary care doctor within 48 hours for reassessment. Portions of this note were created with voice recognition technology. There may be grammatical, spelling, punctuation or sound alike errors Complexity of problem addressed is moderate acute complicated No critical care time Complex of data reviewed and analyzed is none. No specialized testing ordered. Diagnosis made based on history and physical examination. Risk of morbidity/mortality of patient management is minimal. No intervention required. Patient symptoms resolved. Blood pressure normalized prior to arrival. Vital stable. Time spent to discharge patient approximately 10 minutes. Plan of care established for shared decision making. No social determinants of health present to impede follow-up. Portions of this note were created with voice recognition technology. There may be grammatical, spelling, punctuation or sound alike errors 03/15/23 17:32 Counseled pt/family regarding: diagnosis, need for follow-up - Departure Departure Disposition: Home Clinical Impression: Encounter for blood pressure screening, Hypertension Condition: Stable Critical Care Time: No Referrals: CHAZ PALAFOX NP [Primary Care Provider] - Follow up/PCP as directed Additional Instructions: Discharge/Care Plan ROSELINE WATSON was seen on 03/15/23 in the Emergency Room. The patient was counseled regarding Diagnosis,Lab results, Imaging studies, need for follow up and when to return to the Emergency Room. Prescriptions given: Discharge Note I have spoken with the patient and/or caregivers. I have explained the patient's condition, diagnosis and treatment plan based on the information available to me at this time. I have answered the patient's and/or caregiver's questions and addressed any concerns. The patient and/or caregivers have as good understanding of the patient's diagnosis, condition and treatment plan as can be expected at this point. The vital signs have been stable. The patient's condition is stable and appropriate for discharge from the emergency department. The patient will pursue further outpatient evaluation with the primary care physician or other designated or consulting physician as outlined in the discharge instructions. The patient and/or caregivers are agreeable to this plan of care and follow-up instructions have been explained in detail. The patient and/or caregivers have received these instruction. The patient/and or caregivers are aware that any significant change in condition or worsening of symptoms should prompt an immediate return to this or the closest emergency department or call 911.
== END 2023-03-15 17:35 | disposition home or self-care (01) ==
LOC: ED 16:39
DX: I10 Essential (primary) hypertension (principal); Z79.891 Long term (current) use of opiate analgesic; Z28.310 Unvaccinated for COVID-19
CPT/HCPCS: 99281

== ENCOUNTER 2024-03-21 11:22 | Emergency (ER) | payer BC ==
--- NOTE | 2024-03-21 11:27 | ERPHSYRPT ---
- History of Present Illness Time Seen by Provider: 03/21/24 11:27 Source: patient Exam Limitations: no limitations Physician History: This is a 33-year-old white male patient who came in by private vehicle secondary to dizziness and headache at the time of very high blood pressure. Systolic blood pressure was over 200 and the diastolic blood pressure was over 100 mmHg. Patient's primary care provider is nurse genie Loving. He sees Dr. Carmen as his pain specialist. Patient has chronic pain issues. He has history of arthritis and cerebral palsy. He also has a history of seizure disorder. He is not on any antihypertensive agents. He has episodes where his blood pressure suddenly rises significantly and he has symptoms from it. However, the blood pressure seems to respond to his hydrocodone that he takes chronically for pain control. He states that he is kept a log in the past and those values have not justified the patient being placed on antihypertensive agents per his report when he turned in the log to his primary care provider. Currently, his systolic blood pressure is 137 mmHg. He is in no distress. He has no chest pain. He denies shortness of breath. He has no abdominal pain. His dizziness has resolved as has his headache. Timing/Duration: today Severity: moderate Associated Symptoms: headaches, other (Dizziness at the time of his high blood pressure reading. All his symptoms have resolved by the time he reached the emergency department.) Allergies/Adverse Reactions: meloxicam Adverse Reaction (Severe, Verified 03/21/24 12:41) tachycardia codeine Adverse Reaction (Verified 03/21/24 12:41) morphine Adverse Reaction (Verified 03/21/24 12:41) Home Medications: Hydrocodone/Acetaminophen [Hydrocodone-Acetamin 10-325 mg] 1 tablet PO TID 03/15/23 [History] Nortriptyline HCl [Pamelor] 10 mg PO DAILY 03/21/24 [History] Hx Tetanus, Diphtheria Vaccination/Date Given: No Hx Influenza Vaccination/Date Given: No Hx Pneumococcal Vaccination/Date Given: No Travel Risk - International Travel Have you traveled outside of the country in past 3 weeks: No - Emerging Infectious Disease Are you exhibiting symptoms associated with any current EIDs: No - Review of Systems Constitutional: No Symptoms Eyes: No Symptoms Ears, Nose, & Throat: No Symptoms Respiratory: No Symptoms Cardiac: No Symptoms Abdominal/Gastrointestinal: No Symptoms Genitourinary Symptoms: No Symptoms Musculoskeletal: No Symptoms Skin: No Symptoms Neurological: Dizziness, Headache Psychological: No Symptoms Endocrine: No Symptoms Hematologic/Lymphatic: No Symptoms Immunological/Allergic: No Symptoms All Other Systems: Reviewed and Negative - Past Medical History Pertinent Past Medical History: Yes Neurological History: Seizures ENT History: No Pertinent History Cardiac History: No Pertinent History Respiratory History: No Pertinent History Endocrine Medical History: No Pertinent History Musculoskeletal History: Arthritis, Other GI Medical History: No Pertinent History History: No Pertinent History Psycho-Social History: No Pertinent History Male Reproductive Disorders: No Pertinent History Other Medical History: L HIP DYSPLASIA W/ PN; 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 cerebral palsy - Past Surgical History Past Surgical History: Yes Neuro Surgical History: No Pertinent History Cardiac: No Pertinent History Respiratory: No Pertinent History Gastrointestinal: Appendectomy, Hernia Repair Genitourinary: No Pertinent History Musculoskeletal: Orthopedic Surgery Male Surgical History: No Pertinent History Other Surgical History: MARY LOU OSTEOTOMIES. ACHILES TENDONS RELEASED-MARY LOU. UMBILICAL HERNIA REPAIR - Social History Smoking Status: Former smoker Exposure to second hand smoke: No Drug Use: none Patient Lives Alone: No - Nursing Vital Signs Nursing Vital Signs: Initial Vital Signs Temperature 98.0 F 03/21/24 11:31 Pulse Rate 92 H 03/21/24 11:31 Blood Pressure 137/84 03/21/24 11:31 O2 Sat by Pulse Oximetry 98 03/21/24 11:31 Pain Scale Pain Intensity 5 - Physical Exam General Appearance: no apparent distress, alert Eye Exam: PERRL/EOMI, eyes nml inspection Ears, Nose, Throat Exam: normal ENT inspection, moist mucous membranes Neck Exam: normal inspection, non-tender, supple, full range of motion Respiratory Exam: normal breath sounds, lungs clear, airway intact, No chest tenderness, No respiratory distress Cardiovascular Exam: regular rate/rhythm, normal heart sounds, normal peripheral pulses Gastrointestinal/Abdomen Exam: soft, normal bowel sounds, No tenderness Rectal Exam: not done Back Exam: normal inspection, normal range of motion, No CVA tenderness, No vertebral tenderness Extremity Exam: normal inspection, normal range of motion, pelvis stable Neurologic Exam: alert, oriented x 3, cooperative, fruit buying grader II-XII nml as tested, normal mood/affect, sensation nml Skin Exam: normal color, warm, dry Lymphatic Exam: No adenopathy SpO2 Interpretation: normal O2 Delivery: Room Air - Course Nursing assessment & vital signs reviewed: Yes Ordered Tests: Active Orders 24 hr Category Date Time Status HEAD WITHOUT CONTRAST [CT] Stat Exams 03/21/24 11:40 Completed CBC W DIFF Stat Lab 03/21/24 12:25 Completed CMP Stat Lab 03/21/24 12:25 Completed UA W/RFX UR CULTURE Stat Lab 03/21/24 11:43 Completed Lab/Rad Data: Laboratory Result Diagrams 03/21/24 12:25 03/21/24 12:25 Laboratory Results 03/21/24 03/21/24 03/21/24 Range/Units 12:25 12:25 11:43 WBC 7.8 (4.23-9.07) x10^3/uL RBC 4.89 (4.63-6.08) x10^6/uL Hgb 14.7 (13.7-17.5) g/dL Hct 44.1 (40.1-51.0) % MCV 90.2 (79.0-92.2) fL MCH 30.1 (25.7-32.2) pg MCHC 33.3 (32.3-36.5) g/dL RDW 12.8 (11.6-14.4) % Plt Count 284 (163-337) x10^3/uL MPV 9.4 (9.4-12.4) fL Gran % 62.3 (34.0-67.9) % Immature Gran % (Auto) 0.3 (0.001-0.429) % Nucleat RBC Rel Count 0.0 (0.00-0.2) % Eos # (Auto) 0.08 (0.04-0.54) x10^3/uL Immature Gran # (Auto) 0.02 (0.001-0.031) x10^3u/L Absolute Lymphs (auto) 2.13 (1.32-3.57) x10^3/uL Absolute Monos (auto) 0.68 (0.30-0.82) x10^3/uL Absolute Nucleated RBC 0.00 (0.00-0.012) x10^3u/L Lymphocytes % 27.2 (21.8-53.1) % Monocytes % 8.7 (5.3-12.2) % Eosinophils % 1.0 (0.8-7.0) % Basophils % 0.5 (0.2-1.2) % Absolute Granulocytes 4.89 (1.78-5.38) x10^3/uL Basophils # 0.04 (0.01-0.08) x10^3/uL Sodium 141 (135-145) mmol/L Potassium 4.1 (3.5-5.1) mmol/L Chloride 103 (98-107) mmol/L Carbon Dioxide 29 (22-30) mmol/L Anion Gap 12.6 (5-15) MEQ/L BUN 15 (9-20) mg/dL Creatinine 0.81 (0.66-1.25) mg/dL Estimated GFR 120.1 ML/MIN Glucose 91 (74-106) mg/dL Calcium 9.4 (8.4-10.2) mg/dL Total Bilirubin 0.50 (0.2-1.3) mg/dL AST 29 (17-59) U/L ALT 39 (0-50) U/L Alkaline Phosphatase 63 (38-126) U/L Serum Total Protein 7.8 (6.3-8.2) g/dL Albumin 4.5 (3.5-5.0) g/dL Urine Color Yellow (Yellow) Urine Appearance Clear (Clear) Urine pH 6.5 (4.6-8.0) Ur Specific [place] >=1.030 A (1.005-1.030) Urine Protein Negative (Negative) Urine Glucose (UA) Negative (Negative) mg/dL Urine Ketones Negative (Negative) Urine Blood Negative (Negative) Urine Nitrite Negative (Negative) Urine Bilirubin Negative (Negative) Urine Urobilinogen 1.0 A (0.2) mg/dL Ur Leukocyte Esterase Negative (Negative) U Hyaline Cast (Auto) NONE SEEN (0-2) /LPF Urine Microscopic RBC 0-2 (0-5) /HPF Urine Microscopic WBC 0-2 (0-5) /HPF Ur Epithelial Cells None Seen (None Seen) /HPF Urine Bacteria None Seen (None Seen) /HPF Urine Culture Reflexed NO (NO) - Progress Progress: improved Progress Note: 03/21/24 11:44 My medical decision making and the assignment of moderate complexity to this patient's workup today is based on review of the patient's past medical history, medication list, review of the patient's allergy list, physical findings on examination and history present illness. In addition, we agreed upon the workup that includes CT scan of the head, CBC, CMP, urinalysis. Differential diagnosis includes acute intracranial abnormality, abnormal electrolyte, essential hypertension 03/21/24 12:58 The CMP results are still pending. I did interpret the urinalysis and CBC which are normal and show no evidence of any acute, emergent medical issue. The CT scan of the head without contrast was interpreted by the radiologist and I reviewed the impression. The impression states normal CT scan of the head without contrast. 03/21/24 13:12 I interpreted the patient's CMP. It is completely normal. Counseled pt/family regarding: lab results, diagnosis, need for follow-up, rad results Medical Desision Making - Diagnostic Testing Diagnostic test were ordered, analyzed, and reviewed by me: Yes Radiological Interpretation: Reviewed by me, Teleradiologist Report - Risk of complications Low Risk: Low risk of morbidity from additional dx testing or treatment - Departure Departure Disposition: Home Clinical Impression: Hypertension Condition: Stable Critical Care Time: No Referrals: CHAZ LOVING NP [Primary Care Provider] - Follow up/PCP as directed Additional Instructions: Keep a 3 times a day daily log of your blood pressure readings and call your primary care provider today, 03/21/2024 to make arrangements for a follow-up appointment to be seen in the next 3 to 5 days. Continue your medications as prescribed.
[2024-03-21 11:39] VITALS: PULSE 92; TEMP 98
[2024-03-21 12:07] LABS: Appearance Clear (Clear); Bilirubin Negative (Negative); Blood Negative (Negative); Glucose, Urine Negative (Negative); Ketones Negative (Negative); Leukocyte Esterase Negative (Negative); Nitrite Negative (Negative); Ph 6.5 (4.6-8.0); Protein,Urine Dip Negative (Negative); Specific Gravity >=1.030 (1.005-1.030)
[2024-03-21 12:33] LABS: Bacteria None Seen /HPF (None Seen); Epithelial Cells None Seen /HPF (None Seen); Hyaline Casts NONE SEEN /LPF (0-2); RBC 0-2 /HPF (0-5); WBC 0-2 /HPF (0-5)
[2024-03-21 12:34] LABS: ADD URINE CULTURE? NO (NO)
[2024-03-21 12:43] LABS: Absolute Neutrophil Ct (ANC) 4.89 x10^3/uL (1.78-5.38); BASOPHIL % 0.5 % (0.2-1.2); Basophil (Absolute #) 0.04 x10^3/uL (0.01-0.08); Eosinophil (Absolute #) 0.08 x10^3/uL (0.04-0.54); Hematocrit 44.1 % (40.1-51.0); Hemoglobin 14.7 g/dL (13.7-17.5); IMMATURE GRAN # 0.02 x10^3u/L (0.001-0.031); IMMATURE GRAN % 0.3 % (0.001-0.429); Lymphocyte (Absolute #) 2.13 x10^3/uL (1.32-3.57); Lymphocytes % 27.2 % (21.8-53.1); Mean Cell Volume 90.2 fL (79.0-92.2); Mean Corpuscular Hemoglobin 30.1 pg (25.7-32.2); Mean Corpuscular Hgb Concent. 33.3 g/dL (32.3-36.5); Mean Platelet Volume 9.4 fL (9.4-12.4); Monocyte (Absolute #) 0.68 x10^3/uL (0.30-0.82); Monocytes % 8.7 % (5.3-12.2); Neutrophil % 62.3 % (34.0-67.9); Platelet Count 284 x10^3/uL (163-337); Red Blood Count 4.89 x10^6/uL (4.63-6.08); Red Cell Distribution Width 12.8 % (11.6-14.4); White Blood Count 7.8 x10^3/uL (4.23-9.07)
--- NOTE | 2024-03-21 12:50 | XRAY ---
Indication: Headache and dizziness. Hypertension. Multiple contiguous axial images obtained through the head without contrast. Comparison: None Normal appearing brain parenchyma, ventricles, and bony calvarium. Visualized paranasal sinuses and mastoid air cells are clear. Impression: Normal CT head without contrast exam.
[2024-03-21 12:57] LABS: ALBUMIN 4.5 g/dL (3.5-5.0); ANION GAP 12.6 MEQ/L (5-15); BILIRUBIN,TOTAL 0.5 mg/dL (0.2-1.3); Calcium 9.4 mg/dL (8.4-10.2); Creatinine 1 0.81 mg/dL (0.66-1.25); EST GLOMERULAR FILTRATION RATE 120.1 ML/MIN; Potassium 4.1 mmol/L (3.5-5.1); Total Protein 7.8 g/dL (6.3-8.2)
[2024-03-21 13:25] VITALS: BP 124/81; O2SAT 97
== END 2024-03-21 13:29 | disposition home or self-care (01) ==
LOC: ED 11:22
DX: I10 Essential (primary) hypertension (principal); R42 Dizziness and giddiness; R51.9 Headache, unspecified; Z79.891 Long term (current) use of opiate analgesic; Z79.899 Other long term (current) drug therapy
CPT/HCPCS: 36415; 70450; 80053; 81001; 85025; 99283

== ENCOUNTER 2024-04-12 14:37 | Emergency (ER) | payer BC ==
[2024-04-12 15:01] VITALS: RESP 18; TEMP 97.9; O2SAT 97
[2024-04-12] MEDS ORDERED: TORAdol 30 mg Injection ONE (15:19)
[2024-04-12] MEDS: TORAdol 30 mg Injection IM ONE (15:20)
[2024-04-12 16:02] VITALS: PULSE 85
--- NOTE | 2024-04-12 16:16 | ERPHSYRPT ---
- History of Present Illness Time Seen by Provider: 04/12/24 14:41 Source: patient Exam Limitations: no limitations Patient Subjective Stated Complaint: pt states that he was bending down to the play pen for his kid and felt a pop Triage Nursing Assessment: pt came into the er via wheelchair; pt was transfer to cot with assist of 2; pt is axo x4; c/o lower back pain; pt states worsening pain with ambulation; pt states 8/10 pain to lower back with ambulation or movement of BLE; no deformity or bruising present to back; skin PDW; no respiratory distress present; vitals wnl Physician History: 33 years old male with history of cerebral palsy with chronic back pain/hip pain presented in the ER after he bent over and felt a sharp stabbing pain in the lower back especially in the left lower back with some radiation to the left lower extremity without any numbness tingling or weakness. No loss of bowel or bladder control. Pain is aggravated with sitting or standing upright and better with being in a certain position. No weakness of lower extremity. Patient does have history of hip dysplasia and is also reporting increasing pain in the right groin area with no swelling. No saddle anesthesia. Allergies/Adverse Reactions: meloxicam Adverse Reaction (Severe, Verified 04/12/24 14:43) tachycardia codeine Adverse Reaction (Verified 04/12/24 14:43) morphine Adverse Reaction (Verified 04/12/24 14:43) Home Medications: Hydrocodone/Acetaminophen [Hydrocodone-Acetamin 10-325 mg] 1 tablet PO TID 03/15/23 [History] Nortriptyline HCl [Pamelor] 10 mg PO DAILY PRN PRN 03/21/24 [History] Hx Tetanus, Diphtheria Vaccination/Date Given: Yes Hx Influenza Vaccination/Date Given: No Hx Pneumococcal Vaccination/Date Given: No Travel Risk - International Travel Have you traveled outside of the country in past 3 weeks: No - Emerging Infectious Disease Are you exhibiting symptoms associated with any current EIDs: No - Review of Systems Constitutional: No Symptoms Ears, Nose, & Throat: No Symptoms Respiratory: No Symptoms Cardiac: No Symptoms Abdominal/Gastrointestinal: No Symptoms Musculoskeletal: Arthralgias, Back Pain Skin: No Symptoms Neurological: No Symptoms Endocrine: No Symptoms Hematologic/Lymphatic: No Symptoms - Past Medical History Pertinent Past Medical History: Yes Neurological History: Seizures ENT History: No Pertinent History Cardiac History: No Pertinent History Respiratory History: No Pertinent History Endocrine Medical History: No Pertinent History Musculoskeletal History: Arthritis, Other GI Medical History: No Pertinent History History: No Pertinent History Psycho-Social History: No Pertinent History Male Reproductive Disorders: No Pertinent History Other Medical History: L HIP DYSPLASIA W/ PN; 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 cerebral palsy - Past Surgical History Past Surgical History: Yes Neuro Surgical History: No Pertinent History Cardiac: No Pertinent History Respiratory: No Pertinent History Gastrointestinal: Appendectomy, Hernia Repair Genitourinary: No Pertinent History Musculoskeletal: Orthopedic Surgery Male Surgical History: No Pertinent History Other Surgical History: MARY LOU OSTEOTOMIES. ACHILES TENDONS RELEASED-MARY LOU. UMBILICAL HERNIA REPAIR - Social History Smoking Status: Light tobacco smoker Exposure to second hand smoke: No Drug Use: none Patient Lives Alone: No - Social Determinants of Health Will the patient participate in the screening: Yes Do you worry about a steady place to live?: No Do you have any problems with any of the following?: No known problems In the past 12 months,have you had to go without utilities?: No Transportation Issues: No Has anyone in your support network made you feel unsafe?: No Have you or anyone in your house had to go without enough: No - Nursing Vital Signs Nursing Vital Signs: Initial Vital Signs Temperature 97.9 F 04/12/24 14:45 Pulse Rate 91 H 04/12/24 14:45 Respiratory Rate 18 04/12/24 14:45 Blood Pressure 126/87 04/12/24 14:45 O2 Sat by Pulse Oximetry 97 04/12/24 14:45 Pain Scale Pain Intensity [Lower Back] 8 Pain Intensity 6 - Physical Exam General Appearance: no apparent distress, alert Eye Exam: PERRL/EOMI Neck Exam: normal inspection, supple, full range of motion Respiratory Exam: normal breath sounds, lungs clear Cardiovascular Exam: regular rate/rhythm, normal heart sounds Gastrointestinal Exam: soft, normal bowel sounds, other (Negative expansile cough impulse left groin/no inguinal scrotal swelling), No tenderness Back Exam: vertebral tenderness (Mild tenderness of lower lumbar spine and paraspinal area.), decreased range of motion, muscle spasm, point tenderness (Left sacroiliac area) Extremity Exam: normal inspection, other (Straight leg raising positive at left on 30 degree elevation) Neurologic Exam: alert, oriented x 3, cooperative Skin Exam: normal color SpO2 Interpretation: normal SpO2: 97 O2 Delivery: Room Air Ordered Tests: Active Orders 24 hr Category Date Time Status HIP UNI (2V) INCL PEL IF DONE Stat Exams 04/12/24 15:15 Completed LUMBAR COMPLETE (MIN 4 VIEWS) Stat Exams 04/12/24 15:15 Completed Transfer Order Routine Transfer 04/12/24 Ordered Medication Summary Discontinued Medications Generic Name Dose Route Start Last Admin Trade Name Kailee PRN Reason Stop Dose Admin Ketorolac Tromethamine 30 mg 04/12/24 15:15 04/12/24 15:20 Ketorolac Tromethamine 30 Mg/Ml Inj IM 04/12/24 15:16 30 mg STAT ONE Administration Ketorolac Tromethamine Confirm 04/12/24 15:19 Ketorolac Tromethamine 30 Mg/Ml Inj Administered 04/12/24 15:20 Dose 30 mg .ROUTE .[facility]-MED ONE - Progress Progress: improved Progress Note: 04/12/24 17:00 33-year-old with history of chronic back pain, cerebral palsy, hip pain is evaluated in the ER for sudden worsening of low back pain on the left with some radiation to the left hip and lower extremity when he bent over and could not stand up straight. Patient has negative neuroexam in lower extremities. No saddle anesthesia. Given Toradol and Norflex, reevaluation his pain is better. X-rays of left hip and lumbar spines are negative for any acute finding but does have chronic arthritic changes. I believe patient has acute on chronic low back pain with some muscle strain and will give him muscle relaxants to go home. Discussed signs symptoms of worsening needing return to ER which she seems understanding. Stable for discharge. Counseled pt/family regarding: diagnosis, need for follow-up, rad results Medical Desision Making - Diagnostic Testing Diagnostic test were ordered, analyzed, and reviewed by me: Yes Radiological Interpretation: Reviewed by me - Risk of complications The pt has a mod risk of morbidity or mortality based on: Need for prescription drug management - Departure Departure Disposition: Home Clinical Impression: Acute exacerbation of chronic low back pain Condition: Stable Critical Care Time: No Referrals: CHAZ PALAFOX NP [Primary Care Provider] - Follow up with PCP 1 day Instructions: Sciatica (DC) Additional Instructions: Continue with your current home medication for pain. Follow-up with primary care for reevaluation. Return to ER for intractable pain, numbness tingling weakness of lower extremities, loss of bowel or bladder control/saddle anesthesia. Avoid exertional activities. Prescriptions: Cyclobenzaprine HCl 10 mg [Flexeril 10 MG] 10 mg PO TID #12 tablet
--- NOTE | 2024-04-12 16:28 | XRAY ---
Indication: Pain. Spasm. Comparison: November 27, 2019 5 view lumbar spine unchanged again demonstrating minimal levoscoliosis centered at T12, minimal L5-S1 disc space narrowing, and minimal aortic calcifications. No new/acute bony, articular, or soft tissue abnormalities.
--- NOTE | 2024-04-12 16:30 | XRAY ---
Indication: Pain. Spasm. Comparison: January 29, 2022 AP pelvis and 2 view left hip unchanged again demonstrating deformities both proximal femurs either developmental, postsurgical, or old injury. Stable minimal right hip degenerative joint space narrowing. No new/acute bony, articular, or soft tissue abnormalities.
[2024-04-12 17:07] VITALS: BP 126/93
== END 2024-04-12 17:10 | disposition home or self-care (01) ==
LOC: ED 14:37
DX: G89.29 Other chronic pain (principal); M54.50 Low back pain, unspecified; G80.9 Cerebral palsy, unspecified; Z79.891 Long term (current) use of opiate analgesic; Z79.899 Other long term (current) drug therapy; Z72.0 Tobacco use
CPT/HCPCS: 72110; 73502; 96372; 99283; J1885